=== PATIENT | female | born 2000 | race Caucasian/White ===

== ENCOUNTER 2022-11-22 21:32 | Emergency (ER) | payer BC ==
[2022-11-22] MEDS: EPINEPHrine 1 MG/1 ML Amp IM ONE (21:43)
[2022-11-22] MEDS: diphenhydrAMINE 25 MG Cap PO ONE (22:01)
[2022-11-22] MEDS: Famotidine 20 MG Tab PO ONE (22:02)
[2022-11-22] MEDS: methylPREDNISolone Sodium Succinate 125 MG/2 ML SDV IM ONE (22:02)
[2022-11-22] MEDS: Take Home: predniSONE 20 MG, 2 Tab Pack PO ONE (22:02)
== END 2022-11-22 22:32 | disposition home or self-care (01) ==
LOC: VM.ED 21:32
DX: T78.40XA Allergy, unspecified, initial encounter (principal)
CPT/HCPCS: 96372; 99283; A9270; J0171; J2930; J7512

== ENCOUNTER 2023-05-22 13:14 | Emergency (ER) | payer BC ==
[2023-05-22] MEDS: diphenhydrAMINE 50 MG/ML SDV IM ONE (13:35)
[2023-05-22] MEDS: EPINEPHrine 1 MG/1 ML Amp IM ONE (13:35)
[2023-05-22] MEDS: methylPREDNISolone Sodium Succinate 125 MG/2 ML SDV IM ONE (13:35)
[2023-05-22] MEDS: Take Home: predniSONE 20 MG, 2 Tab Pack PO ONE (14:22)
== END 2023-05-22 14:27 | disposition home or self-care (01) ==
LOC: VM.ED 13:14
DX: T78.2XXA Anaphylactic shock, unspecified, initial encounter (principal); Z91.013 Allergy to seafood
CPT/HCPCS: 96372; 99284; J0171; J1200; J2930; J7512